=== PATIENT | male | born 1965 | race Caucasian/White ===

== ENCOUNTER 2019-12-23 01:37 | Day surgery (SDC) | payer OTHER, SELFPAY ==
[2019-12-21 15:19] VITALS: BMI 35.9
[2019-12-23 07:06] VITALS: BP 161/110; PULSE 85; RESP 16; TEMP 36.6; O2SAT 97
[2019-12-23] MEDS: LACTATED RINGERS 1,000 ML 150 ML IV CONT (07:08)
--- NOTE | 2019-12-23 07:50 | WPDANESEPPF ---
Anes - Initial Pre Proc Eval Procedure: Operation Date: 12/23/19 08:00 Proposed Procedures p Screening Colonoscopy - Mitchell Stiles MD Date/Time: 12/23/19 07:50 Surgeon: Mitchell Stiles MD Pre Op Diagnosis: Neoplasm Screening Patient Data Age: 54 Gender: M Height: 6 ft 2 in Weight: 130 kg Last Vital Signs Temp 97.8 F 12/23/19 07:06 Pulse 85 12/23/19 07:06 Resp 16 12/23/19 07:06 BP 161/110 H 12/23/19 07:06 Pulse Ox 97 12/23/19 07:06 Allergies Allergy/AdvReac Type Severity Reaction Status Date / Time No Known Allergies Allergy Verified 12/23/19 06:46 Home Medications Medication Instructions Recorded Confirmed Type allopurinol 300 mg PO DAILY 12/21/19 12/23/19 History indapamide 2.5 mg PO DAILY 12/21/19 12/23/19 History lisinopril 40 mg PO DAILY 12/21/19 12/23/19 History metoprolol tartrate 50 mg PO DAILY 12/21/19 12/23/19 History omeprazole 40 mg PO DAILY 12/21/19 12/23/19 History Patient hx anesthesia problems: none Family hx anesthesia problems: none PMFSH Past Medical History Medical History (Updated 12/23/19 @ 07:50 by Tong Lin MD) GERD (gastroesophageal reflux disease) Hyperlipidemia Hypertension Mitral valve prolapse Anes - Eval Final PreProcedure Day of Procedure 12/23/19 07:50 Patient weight: obese Heart: regular rate and rhythm Lungs: clear to auscultation Airway: Mallampati scale class II Neurological: alert and oriented Last oral intake: >/= 8 hours ASA classification: III Emergent: no Anesthetic plan: proceed Anesthesia type and monitoring: general GIVS and standard monitoring Informed Consent: The patient's anesthetic plan and its attendant risks and benefits were discussed with the patient/family/POA. Questions were solicited and answers provided to the satisfaction of the patient/family/POA.
[2019-12-23 08:08] VITALS: BP 140/97; PULSE 97; RESP 20; O2SAT 97
[2019-12-23 08:18] VITALS: BP 145/103; PULSE 71; RESP 20; O2SAT 97
[2019-12-23 08:28] VITALS: BP 141/95; PULSE 66; RESP 20; O2SAT 97
--- NOTE | 2019-12-23 09:28 | P.HP_ITS ---
History of Present Illness History of Present Illness Consent: Risks, benefits, and alternatives have been discussed and questions answered. Patient agrees to proceed with procedure. Chief complaint: Neoplasm Screening Narrative: José Antonio Hurtado is a 54 year old male Referred for screening colonoscopy [facility] Past Medical History Medical History GERD (gastroesophageal reflux disease) Hyperlipidemia Hypertension Mitral valve prolapse Meds Home Medications and Allergies Home Medications Medication Instructions Recorded Confirmed Type allopurinol 300 mg PO DAILY 12/21/19 12/23/19 History indapamide 2.5 mg PO DAILY 12/21/19 12/23/19 History lisinopril 40 mg PO DAILY 12/21/19 12/23/19 History metoprolol tartrate 50 mg PO DAILY 12/21/19 12/23/19 History omeprazole 40 mg PO DAILY 12/21/19 12/23/19 History Allergies Allergy/AdvReac Type Severity Reaction Status Date / Time No Known Allergies Allergy Verified 12/23/19 06:46 Vital Signs Vital Signs - 24 hr 12/23/19 07:06 12/23/19 08:08 12/23/19 08:18 Temperature 36.6 C Pulse Rate 85 97 71 Respiratory Rate 16 20 20 Blood Pressure 161/110 H 140/97 H 145/103 H Pulse Oximetry 97 97 97 12/23/19 08:28 Temperature Pulse Rate 66 Respiratory Rate 20 Blood Pressure 141/95 H Pulse Oximetry 97 Exam Resp: Auscultation: clear to auscultation bilaterally Cardio: Rate: regular rate Rhythm: regular rhythm GI: GI Palp: Yes Soft to palpation and No Tenderness to palpation present (GI) Assessment and Plan Assessment and plan (1) Colon cancer screening: Code(s): Z12.11 - Encounter for screening for malignant neoplasm of colon Status: Acute Assessment and Plan: Colonoscopy with possible biopsy or polypectomy or cautery or injection of substances.
== END 2019-12-23 08:39 | disposition home or self-care (01) ==
PROVIDERS: PCP Internal Medicine; Visit Provider Internal Medicine Gastroenterology
PROC: 0DJD8ZZ Inspection of Lower Intestinal Tract, Via Natural or Artificial Opening Endoscopic (ICD-10-PCS; CPT 45378; principal; 2019-12-23 08:00)
DX: Z12.11 Encounter for screening for malignant neoplasm of colon (principal); I10 Essential (primary) hypertension; E78.5 Hyperlipidemia, unspecified; I34.1 Nonrheumatic mitral (valve) prolapse; K21.9 Gastro-esophageal reflux disease without esophagitis; E66.9 Obesity, unspecified; Z68.36 Body mass index [BMI] 36.0-36.9, adult
CPT/HCPCS: 45378; J2704; J7120

== ENCOUNTER 2025-01-13 09:09 | Outpatient (CLI) | payer OTHER, SELFPAY ==
--- OUTSIDE RECORDS SUMMARY | 2025-01-13 09:27 | XMS_ITS | CONTINUITY OF CARE DOCUMENT ---
Author Name earline patten Address Unknown Organization [facility] Address [id number] [place] [address] [address] [place] [address] Phone [phone] Care Team Providers Care Sports Specialist Name Role Phone earline patten Unavailable Unavailable
[2025-01-13 10:02] LABS: Alanine Aminotransferase 40 U/L (6-50); Albumin Level 4.6 g/dL (3.5-5.1); Alkaline Phosphatase 76 U/L (38-126); Anion Gap 10 mmol/L (4-12); Aspartate Amino Transferase 30 U/L (17-59); Bilirubin,Total 0.5 mg/dL (0.2-1.3); Blood Urea Nitrogen 12 mg/dL (9-20); Calcium 10.2 mg/dL (8.4-10.2); Carbon Dioxide 27 mmol/L (22-30); Chloride 103 mmol/L (98-107); Estimated Glomerular Filt Rate > 60; Glucose 115 mg/dL (65-110); Potassium 4.6 mmol/L (3.4-5.0); Sodium 140 mmol/L (137-145)
[2025-01-13 10:06] LABS: Hemoglobin A1C 6.1 % (<5.7)
== END 2025-01-13 09:10 | disposition home or self-care (01) ==
LOC: ANHLAB 09:11
PROVIDERS: PCP Internal Medicine; Visit Provider Internal Medicine
DX: E11.9 Type 2 diabetes mellitus without complications (principal)
CPT/HCPCS: 36415; 80053; 83036